=== PATIENT | male | born 1950 | race Caucasian/White ===

== ENCOUNTER 2017-01-03 11:45 | Emergency (ER) | payer MEDICARE, BC ==
[~2017-01-03] VITALS: Ht 157.5 cm; Wt 130.0 kg
[~2017-01-03 11:45] MED LIST: ALLO300T2 PO; AVOD0.5C PO; BETA0.1O EX; CIAL5TAB PO; CO Q60CA2 PO; DHEA25CA PO; DIOV160T60 PO; MELO7.5S; TEST200I13 IM; ULTR50TA PO; VITA400D PO; [UNRECOGNIZED DRUG - CODE] PO
[2017-01-03 11:57] VITALS: BP 197/100; PULSE 86; RESP 22; TEMP 97.8; O2SAT 97
[2017-01-03] MEDS ORDERED: CIAL5TAB PO (12:08)
[2017-01-03] MEDS ORDERED: DIOV160T6 PO (12:08)
[2017-01-03] MEDS ORDERED: TEST200I13 IM (12:08)
[2017-01-03] MEDS ORDERED: TRAM50TA PO (12:08)
[2017-01-03] MEDS ORDERED: CEPH-460 PO (12:08)
[2017-01-03] MEDS ORDERED: ALLO300T2 PO (12:08)
[2017-01-03 12:14] VITALS: BP 173/86
[2017-01-03 12:57] VITALS: BP_SYST 164; BP_SYST 168; BP_SYST 174; BP_DIAS 83; BP_DIAS 87; BP_DIAS 91; RESP 16
[2017-01-03 12:58] LABS: AUTOMATED NEUTROPHIL # 4.4 TH/MM3 (1.8-7.7); BASOPHIL # 0.1 TH/MM3 (0-0.2); EOSINOPHIL # 0.1 TH/MM3 (0-0.4); EOSINOPHIL % 0.7 % (0.0-4.0); HEMATOCRIT 41.8 % (39.0-51.0); HEMO FLAGS DIFF FINAL; LYMPH % 34.7 % (9.0-44.0); LYMPHOCYTE # 2.6 TH/MM3 (1.0-4.8); MEAN CELL VOLUME 94.8 FL (80.0-100.0); MEAN CORPUSCULAR HEMOGLOBIN 32.6 PG (27.0-34.0); MEAN CORPUSCULAR HGB CONC 34.4 % (32.0-36.0); MONO % 5.8 % (0.0-8.0); NEUT % 57.8 % (16.0-70.0); PLATELET COUNT 249 TH/MM3 (150-450); RED BLOOD COUNT 4.41 MIL/MM3 (4.50-5.90); RED CELL DISTRIBUTION WIDTH 13.3 % (11.6-17.2); WHITE BLOOD COUNT 7.6 TH/MM3 (4.0-11.0)
[2017-01-03] MEDS ORDERED: ONDANSETRON HCL 4 MG/2 ML VIAL IV PUSH ONE (13:00)
[2017-01-03] MEDS ORDERED: SODIUM CHLORIDE 0.9% FLUSH 10 ML FLUSH IVF PRN (13:00)
[2017-01-03] MEDS ORDERED: MECLIZINE HCL 25 MG TAB PO ONE (13:00)
[2017-01-03 13:09] LABS: POTASSIUM 3.7 MEQ/L (3.5-5.1)
[2017-01-03 13:11] LABS: BICARBONATE 24.9 MEQ/L (21.0-32.0); MAGNESIUM 2.2 MG/DL (1.5-2.5)
--- NOTE | 2017-01-03 13:11 | RADHPO ---
EXAM DATE/TIME: 01/03/2017 12:59 [place] COMPARISON: No previous studies available for comparison. INDICATIONS : Dizziness. Vomiting. RADIATION DOSE: 64.81 CTDIvol (mGy) MEDICAL HISTORY : Hypertension. SURGICAL HISTORY : None. ENCOUNTER: Initial ACUITY: 1 day PAIN SCALE: 0/10 LOCATION: cranial TECHNIQUE: Multiple contiguous axial images were obtained of the head. Using automated exposure control and adj ustment of the mA and/or kV according to patient size, radiation dose was kept as low as reasonably a chievable to obtain optimal diagnostic quality images. FINDINGS: There is no evidence for intracranial hemorrhage, mass effect, mass lesions, edema, or extra-axial fl uid collections. The visualized bony structures appear intact. The ventricles are normal size for t he patient's age. There are no signs of acute infarction for technique. CONCLUSION: Unremarkable study. Mao Chaparro MD on January 03, 2017 at 13:08 Board Certified Radiologist. This report was verified electronically.
[2017-01-03 13:24] VITALS: BP 157/97; PULSE 66; RESP 18; O2SAT 97
--- NOTE | 2017-01-03 13:33 | PD ---
HPI Chief Complaint: Dizziness Time Seen by Provider: 12:26 Travel History International Travel<30 days: No Contact w/Intl Traveler<30days: No Traveled to known affect area: No History of Present Illness HPI 66yo M presents to the ED with c/o episodes of room spinning since last night. States the episodes last a few minutes and resolves on its own. Today, the episode was associated with episode of vomiting and nausea. States he feels fine after and denies any gait disturbance. Denies any fever, tinnitus, recent infection, chest pain, sob, abdominal pain, focal weakness or numbness. PFSH Past Medical History Gout: Yes Hypertension: Yes Medical other: Yes (BPH) Musculoskeletal: Yes (OA) Tetanus Vaccination: < 5 Years Influenza Vaccination: Yes Past Surgical History Joint Replacement: Yes (BILATERAL KNEES/HIPS/L SHOULDER) Tonsillectomy: Yes Other Surgery: Yes (LEFT 2ND DIGIT REATTACHMENT) Social History Alcohol Use: Yes (RARE) Tobacco Use: No Substance Use: No Allergies-Medications (Allergen,Severity, Reaction): Coded Allergies: Dilaudid (Verified Allergy, Intermediate, 01/03/17) Reported Meds & Prescriptions Reported Meds & Active Scripts Active Meclizine (Meclizine HCl) 25 Mg Chew 25 Mg CHEW TID Reported Keflex (Cephalexin) 500 Mg Cap 500 Mg PO Q8H Allopurinol 300 Mg Tab 300 Mg PO DAILY Testosterone Enanthate Inj (Testosterone Enanthate) 200 Mg/Ml Inj 600 Mg IM 2XWEEK Cialis (Tadalafil) 5 Mg Tab 5 Mg PO DAILY Do not exceed 1 dose/day. Tramadol (Tramadol HCl) 50 Mg Tab 50 Mg PO Q8H PRN Diovan (Valsartan) 160 Mg Tab 160 Mg PO DAILY Review of Systems Except as stated in HPI: all other systems reviewed are Neg Physical Exam Narrative GENERAL: 66yo M not in distress. SKIN: Focused skin assessment warm/dry. HEAD: Atraumatic. Normocephalic. EYES: Pupils equal and round at 4mm bilaterally. No scleral icterus. No injection or drainage. ENT: No nasal bleeding or discharge. Mucous membranes pink and moist. NECK: Trachea midline. No JVD. CARDIOVASCULAR: Regular rate and rhythm. No murmur appreciated. RESPIRATORY: No accessory muscle use. Clear to auscultation. Breath sounds equal bilaterally. GASTROINTESTINAL: Abdomen soft, non-tender, nondistended. MUSCULOSKELETAL: No obvious deformities. No clubbing. No cyanosis. No edema. NEUROLOGICAL: Awake and alert. No obvious cranial nerve deficits. Motor grossly within normal limits. Normal speech. PSYCHIATRIC: Appropriate mood and affect; insight and judgment normal. Data Data Last Documented VS Vital Signs Date Time Temp Pulse Resp B/P Pulse Ox O2 Delivery O2 Flow Rate FiO2 01/03/17 14:24 69 16 163/97 97 Room Air 01/03/17 11:57 97.8 Orders Basic Metabolic Panel (Bmp) (01/03/17 12:47) Complete Blood Count With Diff (01/03/17 12:47) Magnesium (Mg) (01/03/17 12:47) Ct Brain W/O Iv Contrast(Rout) (01/03/17 12:47) Ecg Monitoring (01/03/17 12:47) Meclizine (Antivert) (01/03/17 13:00) Sodium Chloride 0.9% Flush (Ns Flush) (01/03/17 13:00) Orthostatic Vital Signs (01/03/17 12:47) Ondansetron Inj (Zofran Inj) (01/03/17 13:00) Labs Laboratory Tests Test 01/03/17 12:50 White Blood Count 7.6 TH/MM3 Red Blood Count 4.41 MIL/MM3 Hemoglobin 14.4 GM/DL Hematocrit 41.8 % Mean Corpuscular Volume 94.8 FL Mean Corpuscular Hemoglobin 32.6 PG Mean Corpuscular Hemoglobin 34.4 % Concent Red Cell Distribution Width 13.3 % Platelet Count 249 TH/MM3 Mean Platelet Volume 9.3 FL Neutrophils (%) (Auto) 57.8 % Lymphocytes (%) (Auto) 34.7 % Monocytes (%) (Auto) 5.8 % Eosinophils (%) (Auto) 0.7 % Basophils (%) (Auto) 1.0 % Neutrophils # (Auto) 4.4 TH/MM3 Lymphocytes # (Auto) 2.6 TH/MM3 Monocytes # (Auto) 0.4 TH/MM3 Eosinophils # (Auto) 0.1 TH/MM3 Basophils # (Auto) 0.1 TH/MM3 CBC Comment DIFF FINAL Differential Comment Sodium Level 141 MEQ/L Potassium Level 3.7 MEQ/L Chloride Level 108 MEQ/L Carbon Dioxide Level 24.9 MEQ/L Anion Gap 8 MEQ/L Blood Urea Nitrogen 17 MG/DL Creatinine 1.20 MG/DL Estimat Glomerular Filtration 60 ML/MIN Rate Random Glucose 171 MG/DL Calcium Level 8.6 MG/DL Magnesium Level 2.2 MG/DL [facility] Medical Decision Making Medical Screen Exam Complete: Yes Emergency Medical Condition: Yes Interpretation(s) EKG: NSR 80bpm. LAD. No ST segment elevation or depression. Differential Diagnosis Peripheral vertigo vs. Intracranial mass vs. electrolyte abnormality Narrative Course 66yo M with episodes of room spinning since yesterday. Pt has normal neurologic exam. No abnormal gait. Labs reviewed, no leukocytosis. Glucose 171. CT brain negative. Orthostatic negative. Pt given meclizine and has been ambulating without any episodes of room spinning. Normal gait. Pt is no longer nauseous. Return precautions given. Diagnosis Primary Impression: Vertigo Patient Instructions: General Instructions Departure Forms: Tests/Procedures Additional Instructions: Please follow up with your primary care physician in 3-7 days. Return to the ED if symptoms worsen. Med/Other Pt SpecificInfo: Prescription(s) given Scripts Meclizine 25 Mg Chew25 Mg CHEW TID #7 TAB Ref 0 Prov:Grecia Contreras DO 01/03/17 Disposition: 01 DISCHARGE HOME Condition: Stable Grecia Contreras DO Jan 03, 2017 13:33
[2017-01-03 14:24] VITALS: BP 163/97; PULSE 69; RESP 16; O2SAT 97
[2017-01-03] MEDS ORDERED: MECL25CH CHEW (14:25)
--- NOTE | 2017-01-04 13:17 | EKG ---
Date Performed: 01/03/2017 Time Performed: 11:58:46 PTAGE: 66 years EKG: Sinus rhythm Normal ECG NO PREVIOUS TRACING DOCTOR: Jim Santiago Interpretating Date/Time 01/04/2017 13:16:27
== END 2017-01-03 14:35 | disposition home or self-care (01) ==
LOC: PHED 11:45
DX: R42 Dizziness and giddiness (principal); I10 Essential (primary) hypertension; Z79.899 Other long term (current) drug therapy; Z87.39 Personal history of other diseases of the musculoskeletal system and connective tissue; Z87.438 Personal history of other diseases of male genital organs
CPT/HCPCS: 70450; 80048; 83735; 85025; 93005; 96374; 99284; J2405